=== PATIENT | female | born 2000 | race Caucasian/White ===

== ENCOUNTER → 2024-12-18 | Outpatient (CLI) | payer BC, SELFPAY ==
--- NOTE | 2024-12-18 15:23 | US_ITS ---
PROCEDURE: THYROID (USTHY), 12/18/2024 REASON FOR EXAM: HYPOTHYROIDISM TECHNIQUE: Grayscale and color Doppler imaging of the thyroid was performed. COMPARISON: None FINDINGS: Right lobe measures 5.0 x 1.4 x 1.4cm. Heterogeneous background echotexture. No convincingly abnormal vascularity. Nodules as below: *Lower pole, 21 x 20 x 12 mm, mostly cystic, not suspicious. Left lobe measures 4.4 x 1.5 x 1.5 cm. Heterogeneous background echotexture. No convincingly abnormal vascularity. No solid or mostly solid nodules are identified. Isthmus measures 4 mm in thickness. Other: Lymph node in the RIGHT lateral neck measures 26 x 6 x 5 mm with preserved fatty hilum. US/Thyroid IMPRESSION: 1. Assessment is TI-RADS 1. No solid or mostly solid nodules identified. 2. Appearance of the glandular parenchyma suggestive of thyroiditis. 3. Nonenlarged morphologically normal RIGHT cervical node, nonspecific and pote ntially reactive in the absence of known malignancy. Correlate with medical history and follow-up as indicated. Recommendations per ACR Thyroid Imaging, Reporting and Data System (TI-RADS): Maisha ojeda Paper of the ACR TI-RADS Committee, 2017 (https://linkinghub.elsevier.com/retrieve/[email or web address]) Reading Location: [id number]
== END | disposition home or self-care (01) ==
PROVIDERS: PCP Obstetrics & Gynecology; Referring Provider Obstetrics & Gynecology; Visit Provider Obstetrics & Gynecology
DX: E03.9 Hypothyroidism, unspecified (principal)
CPT/HCPCS: 76536